=== PATIENT | female | born 1955 | race African-American/Black ===

== ENCOUNTER 2016-10-22 09:36 | Emergency (ER) | payer BC, OTHER ==
[2016-10-22 10:03] VITALS: BP 175/105
[2016-10-22] MEDS ORDERED: IBUPROFEN 600 MG TABLET PO ONE (11:12)
--- NOTE | 2016-10-22 11:18 | ER Document Report ---
ED Extremity Problem, Lower - General Chief Complaint: Foot Pain Stated Complaint: FOOT PAIN Time Seen by Provider: 10/22/16 11:12 Mode of Arrival: Ambulatory Information source: Patient TRAVEL OUTSIDE OF THE [place] IN LAST 30 DAYS: No - HPI Patient complains to provider of: Pain, Swelling Location: Foot Occurred: Last week Onset/Duration: Gradual Quality of pain: Achy Severity: Moderate Pain Level: 3 Recent injury: No Exacerbated by: Movement Relieved by: Nothing Notes: Patient is a 61-year-old female who presents to the emergency room complaining of pain and swelling to the right foot that has been present 1 week, she denies any injury, she does report a tingling sensation in the toes, she denies a fever, although the foot gets warm at times, she states she is on her feet for approximately 8 hours a day at work, she has a history of similar symptoms in the past and was diagnosed with plantar fasciitis 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 - Related Data Allergies/Adverse Reactions: No Known Allergies Allergy (Verified 10/22/16 09:38) Past Medical History - General Information source: Patient - Social History Smoking Status: Never Smoker Frequency of alcohol use: Occasional Family History: Reviewed & Not Pertinent Patient has suicidal ideation: No Patient has homicidal ideation: No - Past Medical History Cardiac Medical History: Reports: Hx Hypercholesterolemia, Hx Hypertension Denies: Hx Coronary Artery Disease, Hx Heart Attack Pulmonary Medical History: Reports: Hx Bronchitis, Hx Pneumonia Denies: Hx Asthma, Hx COPD Neurological Medical History: Denies: Hx Cerebrovascular Accident, Hx Seizures Endocrine Medical History: Reports: Hx Diabetes Mellitus Type 2 Renal/ Medical History: Denies: Hx Peritoneal Dialysis GI Medical History: Musculoskeltal Medical History: Denies Hx Arthritis Infectious Medical History: Past Surgical History: Reports: Hx Abdominal Surgery - umbilical hernia repair, Hx Genitourinary Surgery - bladder lift, Hx Hysterectomy. Denies: Hx Pacemaker - Immunizations Immunizations up to date: No Hx Diphtheria, Pertussis, Tetanus Vaccination: No Hx Pneumococcal Vaccination: 05/20/10 Review of Systems - Review of Systems Constitutional: No symptoms reported EENT: No symptoms reported Cardiovascular: No symptoms reported Respiratory: No symptoms reported Gastrointestinal: No symptoms reported Genitourinary: No symptoms reported Female Genitourinary: No symptoms reported Musculoskeletal: See HPI Skin: No symptoms reported Hematologic/Lymphatic: No symptoms reported Neurological/Psychological: No symptoms reported -: Yes All other systems reviewed and negative Physical Exam - Vital signs Vitals: Temp Pulse Resp BP Pulse Ox 98.6 F 80 20 175/105 H 98 10/22/16 09:39 10/22/16 09:39 10/22/16 09:39 10/22/16 09:39 10/22/16 09:39 - Notes Notes: - General General appearance: Appears well, Alert In distress: None - HEENT Head: Normocephalic, Atraumatic Eyes: Normal Conjunctiva: Normal Extraocular movements intact: Yes Eyelashes: Normal Pupils: PERRL - Respiratory Respiratory status: No respiratory distress - Cardiovascular Rhythm: Regular - Abdominal Inspection: Normal - Back Back: Normal - Extremities General upper extremity: Normal inspection General lower extremity: right foot with mild swelling on dorsal surface, tenderness to palpate over the dorsal surface of the metatarsals, distal sensation and motor is intact with 2+ DP pulses and brisk capillary refill, no erythema, no wounds, no rashes - Neurological Neuro grossly intact: Yes Orientation: AAOx4 [place] Coma Scale Eye Opening: Spontaneous [place] Coma Scale Verbal: Oriented [place] Coma Scale Motor: Obeys Commands [place] Coma Scale Total: 15 - Psychological Associated symptoms: Normal affect, Normal mood - Skin Skin Temperature: Warm Skin Moisture: Dry Skin Color: Normal Course - Re-evaluation Re-evalutation: 10/22/16 12:01 Imaging findings discussed with patient at bedside which are relatively unremarkable except for soft tissue swelling, patient will be discharged with pain medication and information for follow-up, advised to return if symptoms worsen, patient acknowledges understanding and agreement with the - Vital Signs Vital signs: Temp Pulse Resp BP Pulse Ox 98.6 F 80 20 175/105 H 98 10/22/16 09:39 10/22/16 09:39 10/22/16 09:39 10/22/16 09:39 10/22/16 09:39 - Diagnostic Test Radiology reviewed: Image reviewed, Reports reviewed Discharge - Discharge Clinical Impression: Foot pain, right Condition: Stable Disposition: HOME, SELF-CARE Instructions: Neuropathy ([facility]), Plantar Fasciitis or Heel Spur ([facility]) Additional Instructions: Follow up with your primary care provider in one to 2 days. Return to the emergency room immediately if symptoms worsen or any additional concerns. Prescriptions: Tramadol HCl/Acetaminophen [Ultracet 37.5 mg/325 mg Tablet] 1 each PO Q6 #20 tablet Forms: Elevated Blood Pressure Referrals: ALEXI FARRAR DPM [ACTIVE STAFF] - Follow up as needed
--- NOTE | 2016-10-22 12:00 | RADIOLOGY REPORT (SQ) ---
EXAM DESCRIPTION: FOOT RIGHT COMPLETE COMPLETED DATE/TIME: 10/22/2016 11:51 am REASON FOR STUDY: pain, swelling COMPARISON: None. NUMBER OF VIEWS: Three views. TECHNIQUE: AP, lateral and oblique radiographic images acquired of the right foot. LIMITATIONS: None. FINDINGS: MINERALIZATION: Normal. BONES: There are small dorsal and plantar calcaneal spurs. No acute abnormality. JOINTS: No effusions. SOFT TISSUES: There is mild soft tissue swelling. OTHER: No other significant finding. IMPRESSION: 1. Soft tissue swelling with no fracture. 2. Calcaneal spurs. TECHNICAL DOCUMENTATION: JOB ID: [id number] [employer]- All Rights Reserved
== END 2016-10-22 12:15 | disposition home or self-care (01) ==
LOC: ER 09:36
DX: M79.671 Pain in right foot (principal); M79.89 Other specified soft tissue disorders; R20.2 Paresthesia of skin; I10 Essential (primary) hypertension; E11.9 Type 2 diabetes mellitus without complications
CPT/HCPCS: 99283